=== PATIENT | male | born 1960 | race Caucasian/White ===

== ENCOUNTER 2017-06-11 23:00 | Inpatient (IN) | payer MEDICARE, BC ==
[~2017-06-11] VITALS: Ht 177.8 cm; Wt 80.1 kg
[2017-06-12] VITALS (7 sets, daily range): BP systolic 97–196; BP diastolic 60–101; Ht 177.8 cm; Wt 80.1 kg
[2017-06-12] MEDS ORDERED: PROTONIX40 MG PO (02:15)
[2017-06-12] MEDS ORDERED: CATAPRES0.1 MG PO (02:15)
[2017-06-12] MEDS ORDERED: FUROSEMIDE40 MG PO (02:17)
[2017-06-12] MEDS ORDERED: CALAN120 MG PO (02:18)
[2017-06-12] MEDS ORDERED: METOPROLOL TAR100 M1 PO (02:18)
[2017-06-12] MEDS ORDERED: CALAN SR240 MG PO (02:18)
[2017-06-12] MEDS ORDERED: PHOSLO667 MG PO (02:19)
[2017-06-12] MEDS ORDERED: ASPIRIN325 MG PO (03:03)
[2017-06-12 13:28] LABS: BASOPHILS 0.1 % (0-2); HEMATOCRIT 40.3 % (42.0-54.0); HEMOGLOBIN 13.2 g/dL (13.5-17.5); IMMATURE GRANULOCYTES 0.4 % (0-5); LYMPHOCYTES 14.3 % (15-50); MCH 31.4 pg (26.0-34.0); MCHC 32.8 g/dL (31.0-37.0); MEAN PLATELET VOLUME 11.6 fL (7.4-10.4); MONOCYTES 6.2 % (2-11); PLATELET COUNT 122 10x3/uL (130-400); WBC 8.4 10x3/uL (4.8-10.8)
[2017-06-12 13:43] LABS: ALBUMIN 3.1 g/dL (3.4-5.0); ANION GAP 17.5 mmol/L (8-16); BILIRUBIN - TOTAL 0.42 mg/dL (0.2-1.3); CALCIUM 8.3 mg/dL (8.5-10.1); CREATININE - SERUM 6.9 mg/dL (0.6-1.3); MAGNESIUM - SERUM 2.4 mg/dL (1.8-2.4); PHOSPHOROUS 5.8 mg/dL (2.5-4.9); POTASSIUM - SERUM 4.5 mmol/L (3.5-5.1); PROTEIN - SERUM 5.6 g/dL (6.4-8.2)
[2017-06-13 00:52] VITALS: BP 141/75
[2017-06-13 07:25] VITALS: BP 134/83
[2017-06-13 07:45] LABS: BASOPHILS 0.4 % (0-2); EOSINOPHILS 2.7 % (0-7); HEMATOCRIT 40.7 % (42.0-54.0); HEMOGLOBIN 13.4 g/dL (13.5-17.5); IMMATURE GRANULOCYTES 0.4 % (0-5); LYMPHOCYTES 15.7 % (15-50); MCH 31.4 pg (26.0-34.0); MCHC 32.9 g/dL (31.0-37.0); MCV 95.3 fL (80.0-100.0); MONOCYTES 7.7 % (2-11); NEUTROPHILS 73.1 % (40-80); PLATELET COUNT 134 10x3/uL (130-400); RBC 4.27 10x6/uL (4.20-6.10); RDW 15.9 % (11.5-14.5); WBC 8.2 10x3/uL (4.8-10.8)
[2017-06-13 08:00] VITALS: BP 153/90
[2017-06-13 08:03] LABS: ALBUMIN 3.3 g/dL (3.4-5.0); ANION GAP 16.3 mmol/L (8-16); BILIRUBIN - TOTAL 0.37 mg/dL (0.2-1.3); CALCIUM 8.9 mg/dL (8.5-10.1); CARBON DIOXIDE 24.6 mmol/L (21.0-32.0); CREATININE - SERUM 6.8 mg/dL (0.6-1.3); MAGNESIUM - SERUM 2.5 mg/dL (1.8-2.4); POTASSIUM - SERUM 3.9 mmol/L (3.5-5.1); PROTEIN - SERUM 6.3 g/dL (6.4-8.2)
[2017-06-13] MEDS ORDERED: CATAPRES0.1 MG PO ×2 (11:16→11:17)
== END 2017-06-13 16:46 | disposition left against medical advice (07) | DRG 684 ==
LOC: D.M2 23:00
PROVIDERS: Family Medicine
DX: N17.9 Acute kidney failure, unspecified (principal); I12.9 Hypertensive chronic kidney disease with stage 1 through stage 4 chronic kidney disease, or unspecified chronic kidney disease; N18.4 Chronic kidney disease, stage 4 (severe); Z87.891 Personal history of nicotine dependence; Z95.0 Presence of cardiac pacemaker